=== PATIENT | male | born 1990 | race Caucasian/White ===

== ENCOUNTER 2024-11-23 11:26 | Emergency (ER) | payer MEDICAID, OTHER ==
[~2024-11-23] VITALS: Ht 177.8 cm; Wt 76.0 kg
[~2024-11-23 11:26] MED LIST: AMIT25TA10 PO; BUDE10.2 INH; LYR75C PO; NAPR-1154 PO
[2024-11-23 11:29] VITALS: BP 147/86; PULSE 101; RESP 16; TEMP 98; O2SAT 100
--- NOTE | 2024-11-23 11:33 | Physician Documentation ---
History of Present Illness ~ Chief Complaint: Eye Pain Stated Complaint: L EYE PAIN/SWELLING Time Seen by MD: 12:30 Primary Medical Doctor: Rakel RODRIGEZ 34-year-old male presents with several days of a left itchy eye. Patient states he does have a history of allergies but states that is not what is going on a desired. Reports redness on the lateral aspect Shaan vision. States that he did recently go scuba diving approximately 1 week ago. Denies any cough Medication Reconciliation Allergies: Coded Allergies: No Known Allergies (Unverified , 04/08/14) Scheduled Amitriptyline Hcl (Amitriptyline Hcl), 1 TABLET PO HS Budesonide/Formoterol Fumarate (Symbicort 160-4.5 Mcg Inhaler), 2 PUFFS INH BID, (Reported) Naproxen (Naprosyn), 1 TABLET PO BID Pregabalin (LYRICA capsule), 1 CAP PO BID Past Medical History Past Medical History: Asthma Past Surgical History: no surgical history Alcohol Use: Occasionally Drug Use: none Physical Exam Vital Signs: Temperature: 98.0, Source: Oral, Heart Rate: 101, Respiratory Rate: 16, BP: 147/86, Pulse Oximetry: 100, Weight: 76.000 Oxygen Flow Rate: 0 Progress Results/Orders Results/Orders Orders - CARLOS MANUEL DAWSON NP Neom/Bacitrac/Poly/Hc Eye Oint (Cortispo (11/23/24 13:00) Vital Signs 11/23/24 11:29 Temp 98.0 Pulse 101 Resp 16 B/P (MAP) 147/86 Pulse Ox 100 O2 Flow Rate 0 Medical Decision Making Findings Going to treat the patient empirically for both allergic and bacterial conjunctivitis based on his reported symptoms which have developed some pain. He has been consistent with denying any discharge however and has history of allergies itchiness I feel this is appropriate to cover both Departure Disposition: 01 HOME / SELF CARE / HOMELESS Impression: Primary Impression: Conjunctivitis Discharge Instructions: Allergic Conjunctivitis, Adult, [id number] Referrals: NO PRIMARY CARE PROVIDER (PCP) Prescriptions Neomy Sulf/Bacitrac Zn/Poly/Hc (Cortisporin Ophthalmic Ointment 3.5GM) 3.5-10K-1 Oint..gm. 3.5 GM OP BID for conjunctivitis for 10 Days, #3.5 GM Prov: CARLOS MANUEL DAWSON NP 11/23/24 Education Educated: Patient Educated regarding: diagnosis Signature Scribe Signature: f Attestation: Scribed for Carlos Manuel Dawson [employer] by Carlos Manuel Rocha NP . 11/23/24 12:43 CARLOS MANUEL DAWSON NP Nov 23, 2024 11:33
[2024-11-23] MEDS ORDERED: NEOM3.5O37 OP (12:42)
[2024-11-23] MEDS ORDERED: NEOMY SULF EACHEYE SCH (13:00)
[2024-11-23] MEDS ORDERED: [UNRECOGNIZED DRUG - OTHER] EACHEYE SCH (13:00)
[2024-11-23] MEDS ORDERED: POLYMYX B EACHEYE SCH (13:00)
== END 2024-11-23 12:49 | disposition home or self-care (01) ==
LOC: ER 11:27
DX: H10.9 Unspecified conjunctivitis (principal); J45.909 Unspecified asthma, uncomplicated; Z79.899 Other long term (current) drug therapy; Z72.89 Other problems related to lifestyle
CPT/HCPCS: 99283

== ENCOUNTER 2024-12-18 09:23 | Outpatient (CLI) | payer OTHER ==
[~2024-12-18 09:23] MED LIST changes: +NEOM3.5O37 OP
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
== END 2024-12-18 23:59 | disposition home or self-care (01) ==
LOC: MRI02 09:23
PROVIDERS: ATTEND Anesthesiology
DX: S83.511A Sprain of anterior cruciate ligament of right knee, initial encounter (principal); S13.4XXA Sprain of ligaments of cervical spine, initial encounter; S66.811A Strain of other specified muscles, fascia and tendons at wrist and hand level, right hand, initial encounter; S43.51XA Sprain of right acromioclavicular joint, initial encounter; S47.1XXA Crushing injury of right shoulder and upper arm, initial encounter; S57.01XA Crushing injury of right elbow, initial encounter; S43.431A Superior glenoid labrum lesion of right shoulder, initial encounter; S43.004A Unspecified dislocation of right shoulder joint, initial encounter; S63.591A Other specified sprain of right wrist, initial encounter; M50.30 Other cervical disc degeneration, unspecified cervical region; M48.02 Spinal stenosis, cervical region; J34.89 Other specified disorders of nose and nasal sinuses; M50.321 Other cervical disc degeneration at C4-C5 level; M47.812 Spondylosis without myelopathy or radiculopathy, cervical region; K60.2 Anal fissure, unspecified; R60.0 Localized edema; M18.11 Unilateral primary osteoarthritis of first carpometacarpal joint, right hand; M25.841 Other specified joint disorders, right hand; M25.741 Osteophyte, right hand; M25.80 Other specified joint disorders, unspecified joint; G90.59 Complex regional pain syndrome I of other specified site; M76.31 Iliotibial band syndrome, right leg; M67.51 Plica syndrome, right knee; X58.XXXA Exposure to other specified factors, initial encounter; Y93.89 Activity, other specified; Y92.89 Other specified places as the place of occurrence of the external cause; Y99.8 Other external cause status
CPT/HCPCS: 72141; 73221; 73721